=== PATIENT | female | born 1945 | race Hispanic/Latino ===

== ENCOUNTER → 2017-07-13 | Outpatient (CLI) | payer MEDICARE ==
[~2017-07-13] MED LIST: NKM; PANTOPRAZOLE SO40 MG PO; TYLENOL EXTRA500 MG PO; Z.0.FLAGYL250 MG PO; Z.0.LEVAQUIN500 MG PO
--- NOTE | 2017-07-19 15:47 | Diagnostic Imaging Report ---
#[id number] - MGS[facility] #BILATERAL DIGITAL SCREENING MAMMOGRAM WITH CAD: 07/13/2017 Comparison is made to exams dated: 10/02/2013 mammogram and 05/01/2011 mammogram - [facility]. Current study contains 4 films. There are scattered fibroglandular elements in both breasts. Current study was also evaluated with a Computer Aided Detection (CAD) system. There are benign vascular calcifications and scattered calcifications in both breasts. No significant masses, calcifications, or other findings are seen in either breast. There has been no significant interval change. IMPRESSION: BENIGN There is no mammographic evidence of malignancy. A 1 year screening mammogram is recommended. The patient will be notified by letter of the results. Tru Green Jr., D.O. cw/:07/19/2017 13:27:37 Pillow Agent: Pam ALEX(Nancie)(M), [facility] letter sent: Compared to Prior B9 Mammogram BI-RADS: 2 Benign
== END ==
LOC: MAMMO 08:21
PROVIDERS: ATTEND Family Medicine
DX: Z12.31 Encounter for screening mammogram for malignant neoplasm of breast (principal)

== ENCOUNTER → 2017-12-08 | Outpatient (CLI) | payer MEDICARE ==
--- NOTE | 2017-12-08 10:34 | Diagnostic Imaging Report ---
PROCEDURE:ABDOMINAL ULTRASOUND COMPARISON:CT abdomen and pelvis with contrast 03/16/2012. INDICATIONS:LEFT QUADRANT PAIN TECHNIQUE: Strauss-scale and color sonographic images were obtained of the abdomen in transverse and sagittal planes. FINDINGS: Liver: 14.1 in length in right midclavicular line. Increased parenchymal echogenicity. No masses. Main portal vein: 1 cm in caliber. Patent with hepatopetal flow Gallbladder: Unremarkable in sonographic appearance. No shadowing calculus, wall thickening, or pericholecystic fluid. Common Bile Duct: 0.4 cm in caliber. Sonographic Quick's sign: Negative Right kidney: 10.2 cm in length. Normal renal cortical echogenicity. No calculus or mass. Left kidney: 11.4 cm in length. Normal renal cortical echogenicity. No calculus or mass. Spleen: 8.6 cm in length. Uniform parenchymal echotexture. Pancreas: The visualized portions are unremarkable. Inferior vena cava: Patent Aorta: Non-aneurysmal Ascites: None CONCLUSION: Increased hepatic parenchymal echogenicity compatible with steatosis. Otherwise unremarkable abdominal ultrasound. Dictated by: Ernesto Cortez M.D. on 12/08/2017 at 10:39 Electronically approved by: Ernesto Cortez M.D. on 12/08/2017 at 10:39
--- NOTE | 2017-12-08 10:37 | Diagnostic Imaging Report ---
PROCEDURE:US PELVIS COMPLETE NON OB COMPARISON:None. INDICATIONS:LEFT QUADRANT PAIN Technique: Transverse and longitudinal transabdominal sonographic images of the pelvis were obtained. Discussion: The uterus and ovaries are not identified, in keeping with total abnormal hysterectomy and oophorectomy. No abnormal mass or fluid collection. The urinary bladder appears unremarkable. CONCLUSION: Status post hysterectomy and bilateral oophorectomy. No abnormal mass lesion or fluid collection. Dictated by: Ernesto Cortez M.D. on 12/08/2017 at 10:41 Electronically approved by: Ernesto Cortez M.D. on 12/08/2017 at 10:41
== END ==
LOC: US 08:40
PROVIDERS: ATTEND Family Medicine
DX: R10.32 Left lower quadrant pain (principal)
CPT/HCPCS: 76700; 76856

== ENCOUNTER → 2018-10-14 | Outpatient (CLI) | payer MEDICARE ==
--- NOTE | 2018-10-14 13:10 | Diagnostic Imaging Report ---
Exam: Left heel series; 2 views History: Plantar fasciitis Comparison: None available Findings: A tiny spur at the insertion of the Achilles tendon is noted involving the calcaneus. No fracture or erosion involving the calcaneus. Lateral view shows an irregularity of the distal posterior fibula. If there has been trauma this could represent an avulsive injury. Clinical correlation is necessary. Impression: Tiny calcaneal spur. Irregular distal posterior fibula. Signed by: Dr. Tru Green DO on 10/14/2018 1:06 PM
--- NOTE | 2018-10-14 13:13 | Diagnostic Imaging Report ---
Lumbar spine series, 5 views. History: Pain. Comparison: <None available>. Discussion: The soft tissues are unremarkable. The alignment of the lumbar spine is normal. There is no evidence of fracture. Mild degenerative spurring of the spine. Cortical irregularity of the superior endplate of L3 may represent an old compression abnormality. There is mild anterior listhesis of L4 on L5. The intervertebral disc spaces are within normal limits. Right gluteal injection granuloma. IMPRESSION: 1. Mild degenerative change of the spine with superior endplate cortical irregularity of L3. 2. Mild anterior listhesis of L4 on L5. Signed by: Dr. Tru Green DO on 10/14/2018 1:10 PM
== END ==
LOC: RAD 11:01
PROVIDERS: ATTEND Family Medicine
DX: M54.16 Radiculopathy, lumbar region (principal); M72.2 Plantar fascial fibromatosis
CPT/HCPCS: 72110

== ENCOUNTER → 2018-11-07 | Outpatient (CLI) | payer MEDICARE ==
--- NOTE | 2018-11-07 09:15 | Diagnostic Imaging Report ---
MRI SPINE LUMBAR WO HISTORY: Low back pain, bilateral leg numbness COMPARISON: Lumbar spine radiographs 10/14/2018; Report from CT of the abdomen and pelvis dated 04/03/2014; report from MRI of the lumbar spine dated 02/09/2013 TECHNIQUE: Sagittal T1, sagittal T2, sagittal STIR, axial T2, coronal T2, and axial proton density weighted images of the lumbar spine were obtained without contrast. DISCUSSION: Number of non-rib bearing lumbar vertebral bodies: 5. There are rudimentary ribs at T12. Alignment: Normal lordosis. No scoliosis. Vertebrae: No fractures, infection or neoplasm. Conus medullaris: Normal, ends at T12-L1. Cauda equina: The thecal sac is effaced at L4-L5. Otherwise, no mass or arachnoiditis. Posterior paraspinal muscles: Well preserved. No signal abnormalities. 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 A few small T2 hyperintense lesions in the kidneys are likely cysts. The uterus is been removed. Mild multilevel disc degeneration is most prominent at L4-L5. T12-L1: Patent canal and foramina. L1-L2: Disc bulge without significant canal or foraminal stenosis. L2-L3: Disc bulge without significant canal or foraminal stenosis. L3-L4: Disc bulge without significant canal or foraminal stenosis. L4-L5: Grade 1 anterolisthesis of L4 on L5 due to advanced bilateral L4-L5 facet arthrosis. Severe canal stenosis due to uncovered disc bulge and ligamentum flavum thickening. Both lateral recesses are effaced. Mild bilateral foraminal stenoses due to uncovered disc bulge and facet arthrosis. L5-S1: Mild bilateral foraminal stenoses due to disc bulge and facet arthrosis. No significant canal stenosis. Facet arthrosis is mild to moderate IMPRESSION: 1. Mild multilevel disc degeneration, most prominent at L4-L5. 2. Grade 1 anterolisthesis of L4 on L5 due to advanced bilateral L4-L5 facet arthrosis. 3. Severe degenerative canal stenosis at L4-L5 with thecal sac effacement. 4. Mild bilateral degenerative foraminal stenoses at L4-L5 and L5-S1. Signed by: Dr. Salinas Fox M.D. on 11/07/2018 9:12 AM
== END ==
LOC: MRI 07:40
PROVIDERS: ATTEND Family Medicine
DX: M54.16 Radiculopathy, lumbar region (principal)
CPT/HCPCS: 72148

== ENCOUNTER → 2019-10-17 | Outpatient (CLI) | payer MEDICARE ==
--- NOTE | 2019-10-17 10:20 | Diagnostic Imaging Report ---
EXAM: Bone density study HISTORY: ^OSTEOPOROSIS FINDINGS: LEFT FEMORAL NECK: Bone mineral density measurement: 0.900 gm/cm2 Standard deviation from young adult population (T score): 0.5 Standard deviation for age adjusted population (Z score): 2.5 LUMBAR SPINE: Bone mineral density measurement: 1.172 gm/cm2 Standard deviation from young adult population (T score): 1.1 Standard deviation for age adjusted population (Z score): 3.5 IMPRESSION: Bone mineralization of the left femoral neck: Normal. Bone mineralization of the lumbar spine: Normal. DIAGNOSTIC CRITERIA: Normal: BMD measurement less than one standard deviation from young adult population Osteopenia: BMD measurement between one and 2.5 standard deviations corresponds to a 1 - 2x increased risk of an osteoporotic fracture of the lumbar spine as compared to the young adult population. Osteoporosis: BMD measurement greater than 2.5 standard deviations corresponds to a 2x increased risk of an osteoporotic fracture of the lumbar spine as compared to the young adult population. Severe osteoporosis: Osteoporosis and one or more fragility fractures Signed by: Isaac Martinez MD on 10/17/2019 10:17 AM
== END ==
LOC: MAMMO 08:44
PROVIDERS: ATTEND Family Medicine
DX: Z12.31 Encounter for screening mammogram for malignant neoplasm of breast (principal); M89.9 Disorder of bone, unspecified
CPT/HCPCS: 77067; 77080

== ENCOUNTER 2019-12-05 12:33 | Emergency (ER) | payer MEDICARE ==
[~2019-12-05] VITALS: Ht 147.3 cm; Wt 73.0 kg
--- NOTE | 2019-12-05 12:45 | Emergency Department Note ---
History of Present Illnes History of Present Illness Chief Complaint: ABD PAIN History of Present Illness This is a 74 year old female . 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 Any updates have been documented here. Past Medical History Recent Fever: Yes Clinical Suspicion of Infectio: Yes New/Unexplained Change in Ment: No Past Medical History: Hypertension Other Medical History: diverticulitis Other Surgery: c sect shoulder bladdersuspesion Social History Smoking Cessation: Never Smoker Counseling Performed: No Alcohol Use: Social Any Illegal Drug Use: No TB Exposure/Symptoms: No Physically hurt or threatened: No Family History Family history of heart diseas: No Other Last Tetanus: utd Any Pre-Existing Lines (PICC,: No Is patient up to date on immun: Yes Review of Systems ROS Narrative PATIENT IS A 74 YEAR OLD FEMALE THAT PRESENTS WITH LEFT SIDED ABD PAIN THAT R/T LEFT FLANK. PATIENT STATES PAIN STARTED 1 WEEK AGO AND HAS GRADUALLY WORSENED. Review of Systems Constitutional: Reports no symptoms EENTM: Reports no symptoms Cardiovascular: Reports no symptoms Respiratory: Reports no symptoms Gastrointestinal: Reports abdominal pain, Reports nausea Genitourinary: Reports no symptoms Musculoskeletal: Reports no symptoms Integumentary: Reports no symptoms Neurological: Reports no symptoms Psychological: Reports no symptoms Endocrine: Reports no symptoms Hematological/Lymphatic: Reports no symptoms Physical Exam Related Data Allergies: Coded Allergies: butorphanol tartrate (Verified Allergy, Severe, numbness from neck down, 04/03/14) Penicillins (Verified Allergy, Unknown, 12/05/19) iodine (Verified Allergy, Unknown, 12/05/19) Vital signs reviewed: Yes Physical Exam CONSTITUTIONAL Constitutional: Present well-developed, Present well-nourished HENT HENT: Present normocephalic, Present atraumatic, Present oropharynx clear/moist, Present nose normal HENT L/R: Present left ext ear normal, Present right ext ear normal EYES Eyes: Reports PERRL, Reports conjunctivae normal NECK Neck: Present ROM normal PULMONARY Pulmonary: Present effort normal, Present breath sounds normal CARDIOVASCULAR Cardiovascular: Present regular rhythm, Present heart sounds normal, Present capillary refill normal, Present normal rate GASTROINTESTINAL Abdominal: Present soft, Present bowel sounds normal, Present tender (LEFT SIDED ) GENITOURINARY Genitourinary: Present exam deferred SKIN Skin: Present warm, Present dry MUSCULOSKELETAL Musculoskeletal: Present ROM normal NEUROLOGICAL Neurological: Present alert, Present oriented x 3, Present no gross motor or sensory deficits PSYCHOLOGICAL Psychological: Present mood/affect normal, Present judgement normal Results Laboratory Lab results reviewed: Yes Imaging Imaging results reviewed: Yes Assessment & Plan Medical Decision Making MDM Patient with blood work, UA. CT to R/O infection or diverticulitis IVF and ABX ordered Discussed all results and DC treatment plan. All questions answered. Reassessment Reassessment time: 15:25 Assessment & Plan Final Impression: (1) Diverticulitis Depart Disposition: HOME, SELF-group home Meds Reported Medications Acetaminophen (TYLENOL EXTRA STRENGTH) 500 Mg Tablet, 500 MG PO PRN 02/28/13 Pantoprazole Sodium* (PROTONIX) 40 Mg Tablet., 40 MG PO DAILY 02/28/13 DARIANA BUCKLEY Dec 05, 2019 12:45
[2019-12-05] MEDS ORDERED: MORPHINE SULFATE 2 MG/ML SYR 1ML IV STA (12:46)
[2019-12-05] MEDS ORDERED: SODIUM CHLORIDE 0.9% 1000ML 1,000 ML IV STA (12:46)
[2019-12-05] MEDS ORDERED: METRONIDAZOLE 500MG/NS 100ML 100 ML IV STA (12:46)
[2019-12-05] MEDS ORDERED: ONDANSETRON HCL INJ 2MG/ML 2ML 2 MG/ML VIAL IV STA (12:46)
[2019-12-05] MEDS ORDERED: LEVOFLOXACIN 750MG/D5W 150ML 150 ML IV ONE (13:15)
[2019-12-05] MEDS ORDERED: CEFTRIAXONE SOD 1 GM/NS 50 ML 50 ML IV ONE (13:15)
--- NOTE | 2019-12-05 13:41 | Diagnostic Imaging Report ---
EXAMINATION: CHEST SINGLE (PORTABLE) INDICATION: Back pain COMPARISON: None FINDINGS: LINES/TUBES:None LUNGS:The lungs are well-inflated. No focal consolidation or pulmonary edema. PLEURA:No pleural effusion or pneumothorax. MEDIASTINUM:The cardiomediastinal silhouette appears normal in size and shape. BONES/SOFT TISSUES:No acute osseous injury. ABDOMEN:No free air under the diaphragm. IMPRESSION: No focal pneumonia or pulmonary edema. Signed by: Zoya Iniguez MD on 12/05/2019 1:38 PM
[2019-12-05 14:21] LABS: BASOPHILS # (AUTO) 0.1 (0.0-0.1); BASOPHILS % 0.4 % (0.0-1.0); EOSINOPHILS # (AUTO) 0.2 (0.0-0.4); EOSINOPHILS % 1.4 % (0.0-6.0); HEMATOCRIT 37.2 % (34.2-44.1); HEMOGLOBIN 12.2 g/dL (12.0-16.0); LYMPHOCYTES # (AUTO) 3.4 (1.0-3.2); LYMPHOCYTES % 28.3 % (18.0-39.1); MEAN CORPUSCULAR HEMOGLOBIN 30.3 pg (28-32); MEAN CORPUSCULAR HGB CONC 32.8 g/dL (31-35); MEAN CORPUSCULAR VOLUME 92.3 fL (81-99); MONOCYTES # (AUTO) 0.6 (0.2-0.8); MONOCYTES % 5.3 % (4.4-11.3); NEUTROPHILS # (AUTO) 7.6 (2.1-6.9); NEUTROPHILS % 64.1 % (38.7-80.0); PLATELET COUNT 222 x10e3/uL (140-360); RED BLOOD COUNT 4.03 x10e6/uL (3.6-5.1); RED CELL DISTRIBUTION WIDTH 13.2 % (11.7-14.4)
[2019-12-05 14:38] LABS: ALANINE AMINOTRANSFERASE 17 IU/L (0-55); ALBUMIN 3.5 g/dL (3.5-5.0); ALBUMIN/GLOBULIN RATIO 0.7 (0.8-2.0); ALKALINE PHOSPHATASE 85 IU/L (40-150); ANION GAP 17.2 mmol/L (8-16); BLOOD UREA NITROGEN 10 mg/dL (7-26); BUN/CREATININE RATIO 13 (6-25); CALCIUM 9.7 mg/dL (8.4-10.2); CARBON DIOXIDE 23 mmol/L (22-29); CHLORIDE 103 mmol/L (98-107); CREATINE KINASE 106 IU/L (29-168); CREATININE, SERUM 0.78 mg/dL (0.57-1.11); EST GLOMERULAR FILTRATION RATE > 60 ML/MIN (60-); GLUCOSE 109 mg/dL (74-118); POTASSIUM 4.2 mmol/L (3.5-5.1); SODIUM 139 mmol/L (136-145)
[2019-12-05 14:43] LABS: BILIRUBIN,URINE NEGATIVE (NEGATIVE); CLARITY,URINE CLEAR (CLEAR); COLOR,URINE YELLOW (YELLOW); KETONES,URINE NEGATIVE (NEGATIVE); LEUKOCYTE ESTERASE ,URINE NEGATIVE (NEGATIVE); NITRITE,URINE NEGATIVE (NEGATIVE); PROTEIN,URINE DIPSTICK NEGATIVE (NEGATIVE); URINE UROBILINOGEN 0.2 mg/dL (0.2 - 1)
[2019-12-05 14:54] LABS: BACTERIA,URINE FEW /HPF; EPITHELIAL CELLS,URINE FEW /LPF; RENAL EPITHELIAL CELLS,URINE RARE; TRANSITIONAL EPI CELLS,URINE RARE
--- NOTE | 2019-12-05 14:54 | Diagnostic Imaging Report ---
EXAM: CT Abdomen and Pelvis WITHOUT intravenous contrast INDICATION: Abdominal pain COMPARISON: None. TECHNIQUE: Abdomen and pelvis were scanned utilizing a multidetector helical scanner from the lung base to the pubic symphysis without administration of IV contrast. Coronal and sagittal reformations were obtained. IV CONTRAST: None ORAL CONTRAST: Gastrografin COMPLICATIONS: None RADIATION DOSE: Total DLP: 433 mGy*cm Dose modulation, iterative reconstruction, and/or weight based adjustment of the mA/kV was utilized to reduce the radiation dose to as low as reasonably achievable. FINDINGS: LOWER THORAX: Normal. HEPATOBILIARY: No focal liver lesion. Unremarkable gallbladder. SPLEEN: No splenomegaly. PANCREAS: No focal masses or ductal dilatation. ADRENALS: No adrenal nodules. KIDNEYS/URETERS: No hydronephrosis, stones, or solid mass lesions. PELVIC ORGANS/BLADDER: Status post hysterectomy. PERITONEUM / RETROPERITONEUM: No free air or fluid. LYMPH NODES: No lymphadenopathy. VESSELS: Unremarkable. GI TRACT: Sigmoid diverticulosis with a segment of sigmoid wall thickening and adjacent pericolonic fat stranding consistent with acute diverticulitis. No extraluminal free air or focal drainable abscess. BONES AND SOFT TISSUES: No acute osseous injury. No suspicious lytic or blastic lesions. Grade 1 anterolisthesis at L4-5. IMPRESSION: Acute uncomplicated sigmoid diverticulitis. Signed by: Zoya Iniguez MD on 12/05/2019 2:51 PM
== END 2019-12-05 17:18 | disposition home or self-care (01) ==
LOC: ER 16:14
DX: K57.32 Diverticulitis of large intestine without perforation or abscess without bleeding (principal); R10.32 Left lower quadrant pain; M54.5 Low back pain; R11.0 Nausea; I10 Essential (primary) hypertension
CPT/HCPCS: 36415; 71045; 74176; 80053; 81001; 82550; 82553; 84484; 85025; 99284; J0696; J7030